=== PATIENT | female | born 1985 | race Caucasian/White ===

== ENCOUNTER 2017-09-10 10:46 | Emergency (ER) | payer SELFPAY ==
[2017-09-10] MEDS ORDERED: NS 0.9% 1000 ML* 1,000 ML BOLUS ONE (12:35)
[2017-09-10] MEDS ORDERED: Ketorolac INJ* 30 MG/ML 1 ML VIAL IV ONE (12:36)
[2017-09-10] MEDS ORDERED: cefTRIAXone VIAL(*) 1,000 MG in NS 0.9% 50 ML* 50 ML IVPB ONE (12:36)
[2017-09-10] MEDS ORDERED: Dexamethasone IV* 12 MG in NS 0.9% 50 ML* 50 ML IVPB ONE (12:37)
[2017-09-10] MEDS ORDERED: cefTRIAXone VIAL(*) 1,000 MG VIAL ONE (12:47)
[2017-09-10] MEDS ORDERED: Dexamethasone IV* 4 MG/ML 1 ML (4 MG) ONE (12:49)
[2017-09-10] MEDS ORDERED: Dexamethasone IV* 4 MG/ML 1 ML (4 MG) IV SLOW PU ONE (12:53)
--- NOTE | 2017-09-10 12:56 | UC ---
Throat Pain/Nasal Abiodun HPI - HPI Summary HPI Summary: 32 yo female with a 2- 3 day hx of sore throat fever chills minimal oral intake due to pain feels light-headed and weak no n/v/d no cp or sob - History of Current Complaint Chief Complaint: UCRespiratory Stated Complaint: ST,[place] Time Seen by Provider: 09/10/17 12:26 Hx Obtained From: Patient Hx Last Menstrual Period: last week Onset/Duration: Gradual Onset, Lasting Days Severity: Severe Pain Intensity: 7 Pain Scale Used: 0-10 Numeric Associated Signs & Symptoms: Positive: Fever Related History: Prior ENT Surgery, T & A - Epiglottits Risk Factors Epiglottis Risk Factors: Negative - Allergies/Home Medications Allergies/Adverse Reactions: Allergies Allergy/AdvReac Type Severity Reaction Status Date / Time nickel Allergy Rash Uncoded 09/10/17 12:12 Home Medications: Home Medications Dm/Acetaminophen/Doxylamine [Vicks Nyquil Cold & Flu N 15-6.25-325 mg] 2 cap PO BEDTIME PRN 09/10/17 [History Confirmed 09/10/17] PMH/Surg Hx/FS Hx/Imm Hx Previously Healthy: Yes Endocrine History: Dyslipidemia - Surgical History Surgical History: Yes Surgery Procedure, Year, and Place: [facility]. tonsilectomy. tubes in ears. tubal ligation - Family History Known Family History: Positive: Hypertension - Social History Alcohol Use: None Substance Use Type: None Smoking Status (MU): Former Smoker When Did the Patient Quit Smoking/Using Tobacco: 2013 Review of Systems Constitutional: Fever, Chills, Fatigue Skin: Negative Eyes: Negative ENT: Sore Throat Respiratory: Negative Cardiovascular: Negative Gastrointestinal: Negative Genitourinary: Negative Motor: Negative Neurovascular: Negative Musculoskeletal: Negative Neurological: Negative Psychological: Negative Is Patient Immunocompromised?: No All Other Systems Reviewed And Are Negative: Yes Physical Exam Triage Information Reviewed: Yes Appearance: No Pain Distress, Well-Nourished, Ill-Appearing Vital Signs: Initial Vital Signs Temp 99.3 F 09/10/17 12:15 Pulse 104 09/10/17 12:15 Resp 18 09/10/17 12:15 BP 117/73 09/10/17 12:15 Pulse Ox 97 09/10/17 12:15 Eyes: Positive: Conjunctiva Clear ENT: Positive: Pharynx normal, Uvula midline. Negative: Nasal congestion, Nasal drainage Neck: Positive: Supple, Nontender, Enlarged Nodes @ - ant cervical Respiratory: Positive: Lungs clear, Normal breath sounds, No respiratory distress Cardiovascular: Positive: RRR, No Murmur, Tachycardia Abdomen Description: Positive: Nontender, No Organomegaly, Soft Musculoskeletal: Positive: ROM Intact, No Edema Neurological: Positive: Alert Psychological Exam: Normal Skin Exam: Normal Diagnostics - Laboratory Diagnostic Studies Completed/Ordered: strep (+) Re-Evaluation - Re-Evaluation First Eval Re-Evaluation Time: 13:41 Change: Improved Comment: feels better Throat Pain/Nasal Course/Dx - Differential Dx/Diagnosis Provider Diagnoses: strep throat. dehydration Discharge - Discharge Plan Condition: Stable Disposition: HOME Prescriptions: Amoxicillin PO (*) [Amoxicillin 875 MG (*)] 875 mg PO BID #18 tab Patient Education Materials: Dehydration (ED), Strep Throat (DC) Referrals: Dana Berry MD [Primary Care Provider] - 2 Days (if not better) Additional Instructions: rest fluids tylenol or advil recheck for new or worsening symptoms
[2017-09-10] MEDS ORDERED: CEFTRIAXONE IVPB ONE (13:01)
[2017-09-10] MEDS ORDERED: NS 0.9% IVPB ONE (13:01)
[2017-09-10 14:19] VITALS: BP 117/58
== END 2017-09-10 14:36 | disposition home or self-care (01) ==
LOC: UCCORT 10:46
DX: J02.0 Streptococcal pharyngitis (principal); E86.0 Dehydration; Z87.891 Personal history of nicotine dependence; Z91.048 Other nonmedicinal substance allergy status
CPT/HCPCS: 87651; 96361; 96365; 96375; 99202; G0463; J0696; J1100; J1885

== ENCOUNTER 2018-11-07 08:31 | Emergency (ER) | payer OTHER ==
[2018-11-07 09:00] VITALS: BP 126/76
--- NOTE | 2018-11-07 10:07 | UC ---
Throat Pain/Nasal Abiodun HPI - HPI Summary HPI Summary: Pt presents with c/o sore throat, body aches and "spots" on her tonsils X 3 days. Pt has known exposure to strep throat. - History of Current Complaint Chief Complaint: UCGeneralIllness Stated Complaint: ST Time Seen by Provider: 11/07/18 10:01 Hx Obtained From: Patient Hx Last Menstrual Period: October 29 ?: No Onset/Duration: Sudden Onset, Lasting Days, Still Present, Worse Since - onset Severity: Moderate Pain Intensity: 0 Cough: None Associated Signs & Symptoms: Positive: Dysphagia - Epiglottits Risk Factors Epiglottis Risk Factors: Sudden Onset - Allergies/Home Medications Allergies/Adverse Reactions: Allergies Allergy/AdvReac Type Severity Reaction Status Date / Time nickel Allergy Rash Uncoded 11/07/18 08:54 PMH/Surg Hx/FS Hx/Imm Hx Previously Healthy: Yes - Surgical History Surgical History: Yes Surgery Procedure, Year, and Place: [facility]. tonsilectomy. tubes in ears. tubal ligation - Family History Known Family History: Positive: Hypertension - Social History Occupation: Employed Full-time Lives: With Family Alcohol Use: Occasionally Substance Use Type: None Smoking Status (MU): Former Smoker Have You Smoked in the Last Year: Yes - had a few cig's When Did the Patient Quit Smoking/Using Tobacco: 2013 - Immunization History Vaccination Up to Date: Yes Review of Systems All Other Systems Reviewed And Are Negative: Yes Constitutional: Positive: Fever, Chills Skin: Positive: Negative Eyes: Positive: Negative ENT: Positive: Sore Throat Respiratory: Positive: Negative Cardiovascular: Positive: Negative Gastrointestinal: Positive: Negative Genitourinary: Positive: Negative Motor: Positive: Negative Neurovascular: Positive: Negative Musculoskeletal: Positive: Negative Neurological: Positive: Negative Psychological: Positive: Negative Is Patient Immunocompromised?: No Physical Exam Triage Information Reviewed: Yes Appearance: Ill-Appearing Vital Signs: Initial Vital Signs Temp 98.0 F 11/07/18 08:46 Pulse 98 11/07/18 08:46 Resp 18 11/07/18 08:46 BP 126/76 11/07/18 08:46 Pulse Ox 97 11/07/18 08:46 Vital Signs Reviewed: Yes Eye Exam: Normal ENT: Positive: Tonsillar swelling, Tonsillar exudate, Other - palatal petechiae Dental Exam: Normal Neck: Positive: Enlarged Nodes @ Respiratory Exam: Normal Cardiovascular Exam: Normal Musculoskeletal Exam: Normal Neurological Exam: Normal Psychological Exam: Normal Skin Exam: Normal Throat Pain/Nasal Course/Dx - Differential Dx/Diagnosis Differential Diagnosis/HQI/PQRI: Mononucleosis, Pharyngitis, Tonsillitis Provider Diagnosis: Tonsillitis with exudate Discharge - Sign-Out/Discharge Documenting (check all that apply): Patient Departure All imaging exams completed and their final reports reviewed: No Studies - Discharge Plan Condition: Stable Disposition: HOME Prescriptions: Penicillin VK 500 MG TAB(NF) [Penicillin VK 500 mg Tab] 500 mg PO Q8H #30 tab predniSONE TAB* [Deltasone 20 MG TAB*] 20 mg PO DAILY #4 tab Patient Education Materials: Tonsillitis (ED) Referrals: [facility] [Outside] No Primary Care Phys,NOPCP [Primary Care Provider] - - Billing Disposition and Condition Condition: STABLE Disposition: Home
== END 2018-11-07 10:13 | disposition home or self-care (01) ==
LOC: UCCORT 08:31
DX: J03.80 Acute tonsillitis due to other specified organisms (principal); Z91.048 Other nonmedicinal substance allergy status; Z87.891 Personal history of nicotine dependence
CPT/HCPCS: 99212; G0463